=== PATIENT | male | born 1985 | race African-American/Black ===

== ENCOUNTER 2017-01-21 17:02 | Emergency (ER) | payer OTHER ==
[~2017-01-21] VITALS: Ht 170.2 cm; Wt 65.8 kg
--- NOTE | 2017-01-21 17:08 | NUR ---
PT BIB PD TO ER BED 14. HERE FOR MEDICAL CLEARANCE PRIOR TO CUSTODY. PRESENTS W/ RFA ABRASIONS. PT IS AAO, VERBALLY RESPONSIVE AND COOPERATIVE. AWAITINGMD EVAL.
--- NOTE | 2017-01-21 17:58 | NUR ---
PT IS MEDICALLY CLEARED. WOUND CARE PROVIDED. D/C IN STABLE CONDITION.
[2017-01-21 17:59] VITALS: BP 126/74
== END 2017-01-21 18:00 | disposition home or self-care (01) ==
LOC: ER 17:11
DX: S51.811A Laceration without foreign body of right forearm, initial encounter (principal); F43.9 Reaction to severe stress, unspecified; W22.8XXA Striking against or struck by other objects, initial encounter; Y92.89 Other specified places as the place of occurrence of the external cause; Y93.89 Activity, other specified; Y99.8 Other external cause status
CPT/HCPCS: 99283; A4606 ×2; A6402; A6403; Z7610

== ENCOUNTER → 2024-06-07 | Emergency (ER) | payer OTHER ==
[~2024-06-07] MED LIST: ACETAMINOPHEN ES 500 MG TABLET ONE; ONDANSETRON 4 MG TAB.RAPDIS ONE
== END | disposition left against medical advice (07) ==
LOC: ER 21:36
DX: Z00.00 Encounter for general adult medical examination without abnormal findings (principal); Z53.21 Procedure and treatment not carried out due to patient leaving prior to being seen by health care provider

== ENCOUNTER 2024-06-11 17:02 | Emergency (ER) | payer SELFPAY ==
[~2024-06-11] VITALS: Ht 172.7 cm; Wt 59.9 kg
[2024-06-11 17:17] VITALS: BP 122/78; TEMP 97.9; O2SAT 97
[2024-06-11] MEDS: ACETAMINOPHEN ES 500 MG TABLET PO ONE ×2 (17:30→20:50)
[2024-06-11] MEDS: ONDANSETRON 4 MG TAB.RAPDIS SL ONE (17:30)
[2024-06-11] MEDS ORDERED: ACETAMINOPHEN ES 500 MG TABLET ONE ×2 (18:13→20:47)
[2024-06-11] MEDS ORDERED: ONDANSETRON 4 MG TAB.RAPDIS ONE (18:13)
[2024-06-11] MEDS ORDERED: KETOROLAC TROMETHAMINE 15 MG/ML VIAL IV ONE (19:00)
[2024-06-11] MEDS ORDERED: IV NS 0.9% 500 ML BAG IV ONE (19:00)
[2024-06-11] MEDS ORDERED: IBUPROFEN 600 MG TABLET ONE (20:47)
[2024-06-11] MEDS: IBUPROFEN 600 MG TABLET PO ONE (20:50)
== END 2024-06-11 21:26 | disposition home or self-care (01) ==
LOC: ER 17:15
DX: S09.90XA Unspecified injury of head, initial encounter (principal); R11.0 Nausea; R42 Dizziness and giddiness; R53.1 Weakness; X99.0XXA Assault by sharp glass, initial encounter; Y93.89 Activity, other specified; Y92.89 Other specified places as the place of occurrence of the external cause; Y99.8 Other external cause status
CPT/HCPCS: 99284; 70450; Q0162